=== PATIENT | male | born 1960 | race Caucasian/White ===

== ENCOUNTER 2019-11-23 11:16 | Emergency (ER) | payer SELFPAY ==
[~2019-11-23 11:16] MED LIST: Sodium Chloride 0.9% 1,000 ML IV ONE
[2019-11-23] MEDS ORDERED: EPINEPHrine 1:10,000 1 MG/10 ML Syringe IVPUSH ONE ×3 (11:20→11:30)
[2019-11-23] MEDS ORDERED: EPINEPHrine 1 MG/1 ML Amp IVPUSH ONE (11:20)
[2019-11-23] MEDS ORDERED: EPINEPHrine 1 MG/ML 30 ML MDV IVPUSH ONE ×2 (11:26→11:30)
[2019-11-23] MEDS ORDERED: Amiodarone 150 MG/3 ML SDV IVPUSH ONE (11:26)
[2019-11-23 11:59] LABS: PTT,PARTIAL THROMBOPLSTIN TIME 26.7 SEC (23.1-31.3)
--- NOTE | 2019-11-23 11:59 | EDM.PDOC ---
ED HPI GENERAL MEDICAL PROBLEM - General Chief Complaint: CPR in Progress Stated Complaint: GA Time Seen by Provider: 11/23/19 11:52 Source of Information: Reports: EMS, EMS Notes Reviewed History Limitations: Reports: Other (Token process. No family members available ) - History of Present Illness INITIAL COMMENTS - FREE TEXT/NARRATIVE: A 59-year-old gentleman that was brought to emergency department via EMS in CODE STATUS with CPR being performed. Patient was given multiple shocks and epinephrine in route. Per EMS, patient had a syncopal event at approximately 1030 today. This was witnessed and CPR was initiated immediately. EMS arrived approximately 7-10 minutes later, patient was orally intubated and CPR initiated. Patient arrived to ER with Alessandro in place, ET tube at the 24, bilateral breath sounds, unresponsive, faint pulses, and no spontaneous breathing. Onset: Today, Sudden Onset Date: 11/23/19 Onset Time: 10:40 Improves with: Reports: None Worsens with: Reports: None Associated Symptoms: Reports: No Other Symptoms Treatments [employer]: Reports: CPR ED ROS GENERAL - Review of Systems Review Of Systems: See Below Constitutional: Reports: Other HEENT: Reports: Other Respiratory: Reports: Other Cardiovascular: Reports: Other (CODE STATUS) Endocrine: Reports: Other GI/Abdominal: Reports: Other : Reports: Other Musculoskeletal: Reports: Other Skin: Reports: Other Neurological: Reports: Other Psychiatric: Reports: Other Hematologic/Lymphatic: Reports: Other Immunologic: Reports: Other Free Text/Narrative/Comment: CPR in progress ED EXAM, GENERAL - Physical Exam Exam: See Below General Appearance: Obtunded Eye Exam: Bilateral Eye: Abnormal EOM (Fixed and pinpoint) Nose: No Blood Throat/Mouth: Normal Inspection, Normal Oropharynx, No Airway Compromise Head: Atraumatic, Normocephalic Respiratory/Chest: Other (CPR via valve mask) Cardiovascular: Other (CPR) Extremities: No Pedal Edema Neurological: Unresponsive Skin Exam: Cool, Diaphoretic Course - Orders/Labs/Meds Labs: Laboratory Tests 11/23/19 11/23/19 11/23/19 Range/Units 11:25 11:25 11:25 WBC 9.95 (5.00-10.00) 10^3/uL RBC 4.85 (4.50-6.00) 10^6/uL Hgb 15.7 (13.0-17.0) g/dL Hct 46.0 (40.0-52.0) % MCV 94.8 H (82.0-92.0) fL MCH 32.4 H (27.0-31.0) pg MCHC 34.1 (32.0-36.0) g/dL RDW 12.9 (11.5-14.5) % Plt Count 178 (150-400) 10^3/uL MPV 11.8 H (7.4-10.4) fL Immature Gran % (Auto) 5.2 H (0.0-5.0) % Neut % (Auto) 44.5 L (50.0-70.0) % Lymph % (Auto) 42.8 H (20.0-40.0) % Davidson % (Auto) 5.8 (2.0-8.0) % Eos % (Auto) 0.4 L (1.0-3.0) % Baso % (Auto) 1.3 H (0.0-1.0) % Neut # (Auto) 4.42 (2.50-7.00) 10^3/uL Lymph # (Auto) 4.26 H (1.00-4.00) 10^3/uL Davidson # (Auto) 0.58 (0.10-0.80) 10^3/uL Eos # (Auto) 0.04 L (0.10-0.30) 10^3/uL Baso # (Auto) 0.13 H (0.00-0.10) 10^3/uL Immature Gran # (Auto) 0.52 H (0.00-0.50) 10^3/uL PT 11.2 (8.9-11.4) SEC INR 1.1 (0.9-1.1) APTT 26.7 (23.1-31.3) SEC Sodium 138 (136-145) mmol/L Potassium 3.3 (3.3-5.3) mmol/L Chloride 100 (98-115) mmol/L Carbon Dioxide 20.1 L (21.0-32.0) mmol/L Anion Gap 21.2 H (5-15) mmol/L BUN 13 (6-25) mg/dL Creatinine 1.24 H (0.51-1.17) mg/dL Est Cr Clr Drug Dosing TNP Estimated GFR (MDRD) 59 mL/min Glucose 478 H (75 - 99) mg/dL Calcium 7.9 L (8.7-10.3) mg/dL Magnesium 2.1 (1.8-2.4) mg/dL Total Bilirubin 0.6 (0.2-1.0) mg/dL AST 141 H (15-37) U/L ALT 89 H (12-78) U/L Alkaline Phosphatase 99 (46-116) IU/L Troponin I 0.10 H* (0.00-0.070) ng/mL Total Protein 5.8 L (6.4-8.2) g/dL Albumin 2.77 L (3.00-4.80) g/dL - Re-Assessments/Exams Free Text/Narrative Re-Assessment/Exam: 11/23/19 12:00 Patient underwent CPR for continuous 1 hour. E-Emergency documentation for multiple rounds of medications and shockable rhythm. Patient became asystole approximately 1 hour after initiation of CPR. After discussing with participants of code, CPR was discontinued. This occurred at 1138. Departure - Departure Time of Disposition: 11:40 Disposition: 20 Preliminary Cause of *Q: Cardiac Arrest Clinical Impression: Cardiac arrest Referrals: PCP,None [Primary Care Provider] - Forms: ED Department Discharge Sepsis Event Note - Focused Exam Date Exam was Performed: 11/23/19 Time Exam was Performed: 12:06 - Assessment/Plan Assessment:: CPR suspected GA Plan:
[2019-11-23 12:03] LABS: ANION GAP 21.2 mmol/L (5-15); CHLORIDE,CL 100 mmol/L (98-115); SODIUM,NA 138 mmol/L (136-145)
== END 2019-11-23 11:38 | disposition expired ==
LOC: KA.ED 11:16
DX: I46.9 Cardiac arrest, cause unspecified (principal)
CPT/HCPCS: 31500; 80053; 83735; 84484; 85025; 85610; 85730; 92950; 99285; J0171; J0282; J7030; Q3014; 99291